=== PATIENT | female | born 1950 | race Caucasian/White ===

== ENCOUNTER 2022-07-30 18:01 | Emergency (ER) | payer OTHER, SELFPAY ==
--- NOTE | 2022-07-30 18:02 | ED.FEMALEGU ---
HPI - Female Genitourinary General Chief complaint: Urogenital-Female Stated complaint: Urinary Problem Time Seen by Provider: 07/30/22 18:02 Source: patient Mode of arrival: ambulatory Limitations: no limitations History of Present Illness HPI Narrative: Ms Dejesus is a 71-year-old female patient presenting to clinic today with complaints of possible urinary tract infection. She reports symptoms started yesterday with burning with urination. States today she is no longer able to hold her urine, noticing blood in her urine, and is having incontinence as well as some chills. Related Data Home Medications Medication Instructions Recorded Confirmed Bystolic 07/30/22 ProAir HFA 07/30/22 hydrocodone 10 mg-acetaminophen tablet 07/30/22 325 mg tablet Allergies Allergy/AdvReac Type Severity Reaction Status Date / Time Penicillins Allergy Rash Verified 07/30/22 18:11 Sulfa (Sulfonamide Allergy Rash Verified 07/30/22 18:11 Antibiotics) Review of Systems Review of Systems: Pertinent positives per HPI. Patient denies any fever, rash, headache, visual changes, dizziness, cough, runny nose, sore throat, shortness of breath, chest pain, palpitations, nausea, vomiting, diarrhea, or constipation. PMFSH Comments At the time of my signature, I reviewed and agree with the nursing past medical, surgical, social, and family history. There is no relevant family history pertinent to the patient complaint. Exam Narrative: General: Well-developed, well nourished, in no apparent distress. Head: Normocephalic, atraumatic. Cardio: Regular rate and rhythm, s1 and s2 normal, no murmur appreciated. Resp: Clear to auscultation bilaterally, no rhonchi, rales, wheezing or rubs. Abdomen: Soft, pliable, bowel sounds present in all quadrants, tender to palpation over the lower abdomen, no organomegly, positive bilateral CVAT tenderness. Course Course Emergency Course: Portions of this record may have been created with voice recognition software. Level of Care: Express Care Visit Vital Signs Vital signs: Vital Signs Temperature 37.3 C 07/30/22 18:08 Pulse Rate 77 07/30/22 18:08 Respiratory Rate 20 07/30/22 18:08 Pulse Oximetry 95 07/30/22 18:08 Oxygen Delivery Room Air 07/30/22 18:08 Temperature 37.3 C 07/30/22 18:08 Pulse Rate 77 07/30/22 18:08 Respiratory Rate 20 07/30/22 18:08 Pulse Oximetry 95 07/30/22 18:08 Oxygen Delivery Room Air 07/30/22 18:08 Vital signs reviewed MDM - Female Genitourinary MDM Narrative Medical decision making narrative: At the time of visit patient is resting comfortably on the exam table pain. Urinalysis positive for ketones, protein, blood, bili, nitrate, and leukocyte. Patient has CVA tenderness as well as lower abdominal tenderness. I suspect patient has urinary tract infection/pyelonephritis. Prescription for course of ciprofloxacin was sent to the pharmacy. Supportive measures were discussed with the patient she voiced understanding of discharge instructions and agrees to treatment plan. Differential Diagnosis Differential diagnosis: Likely urinary tract infection, cystitis and other (Pyelonephritis) Lab Data Labs: Urine Glucose Negative Reference Range: Negative Urine Bilirubin 2+ Reference Range: Negative Urine Ketone Trace Reference Range: Negative Urine Specific [place] 1.025 Reference Range:1.001-1.035 Urine Blood 3+ Reference Range: Negative * * Urine pH 5.5 Reference Range: 5.0-9.0*
[2022-07-30 18:08] VITALS: PULSE 77; RESP 20; TEMP 37.3; O2SAT 95
--- NOTE | 2022-07-30 18:18 | PC.NURSE ---
PATIENT REFUSED BP & RIPPED OFF CUFF.
== END 2022-07-30 18:39 | disposition home or self-care (01) ==
PROVIDERS: Emergency Provider Nurse Practitioner Family; PCP Family Medicine
DX: N10 Acute pyelonephritis (principal); N30.01 Acute cystitis with hematuria
CPT/HCPCS: 81003; 87077; 87086; 87186; 99213; G0463